=== PATIENT | male | born 1990 | race Caucasian/White ===

== ENCOUNTER 2016-06-21 18:46 | Emergency (ER) | payer OTHER ==
[2016-06-21 20:21] VITALS: BP 141/81
== END 2016-06-21 20:21 | disposition home or self-care (01) ==
LOC: ED 18:46
DX: S93.601A Unspecified sprain of right foot, initial encounter (principal); W51.XXXA Accidental striking against or bumped into by another person, initial encounter; Y93.66 Activity, soccer; Y92.39 Other specified sports and athletic area as the place of occurrence of the external cause; Y99.8 Other external cause status
CPT/HCPCS: Q0092